=== PATIENT | male | born 1970 ===

== ENCOUNTER 2018-02-20 18:10 | Emergency (ER) | payer OTHER ==
[2018-02-20 18:29] VITALS: RESP 18; O2SAT 100
[2018-02-20] MEDS ORDERED: Bacitracin OINT 15GM TOP STA (18:46)
[2018-02-20] MEDS ORDERED: Bacitracin 500 Units/gm Oint Foilpak UD ONE (19:05)
[2018-02-20] MEDS ORDERED: Naproxen 500 MG TAB PO ONE (19:17)
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
[2018-02-20 20:02] VITALS: BP 122/70; PULSE 78; TEMP 98
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
== END 2018-02-20 20:01 | disposition home or self-care (01) ==
LOC: H.ER 18:10
DX: S40.021A Contusion of right upper arm, initial encounter (principal); V43.62XA Car passenger injured in collision with other type car in traffic accident, initial encounter; Y92.140 Kitchen in prison as the place of occurrence of the external cause